=== PATIENT | female | born 1970 | race Two or more races ===

== ENCOUNTER → 2019-09-26 | Outpatient (CLI) | payer BC ==
--- NOTE | 2019-09-29 17:04 | MY ---
DATE OF SERVICE: 09/26/19 CLINICAL DATA: SCREENING AFTER CLINIC APT BILATERAL MAMMOGRAMS: Comparison is made to a prior exam dated 09/11/18. The breast tissue is heterogeneously dense bilaterally. There is stable asymmetry. No significant changes from the prior study. There is no evidence of malignancy. IMPRESSION: No evidence of malignancy. One year follow-up mammography is recommended. BI-RAD C: Mammogram - The breasts are heterogeneously dense, which may obscure small masses ACR 1 - Negative Mammogram. The exam was reviewed with R2 CAD. [id number] JONATHAN
== END ==
LOC: LB.MAM 14:57
PROVIDERS: ATTEND Family Medicine
DX: Z12.31 Encounter for screening mammogram for malignant neoplasm of breast (principal); L98.9 Disorder of the skin and subcutaneous tissue, unspecified
CPT/HCPCS: 77067; 88305

== ENCOUNTER → 2019-10-07 | Outpatient (CLI) | payer BC | LOC: LB.CLINIC 15:26 | PROVIDERS: ATTEND Nurse Practitioner Family | DX: R19.7 Diarrhea, unspecified (principal); R10.9 Unspecified abdominal pain | CPT/HCPCS: 36415; 80053; 81001; 85025 ==

== ENCOUNTER 2019-11-01 09:47 | Day surgery (SDC) | payer BC ==
[~2019-11-01 09:47] MED LIST: Metoclopramide 10 MG/2 ML SDV IV PRN; Sodium Chloride 0.9% 1,000 ML IV SCH
[2019-11-01] MEDS ORDERED: Propofol 1,000 MG/100 ML SDV ONE (11:25)
[2019-11-01] MEDS ORDERED: Midazolam 1 MG/ML 2 ML SDV ONE (11:25)
[2019-11-01 11:46] VITALS: PULSE 70
--- NOTE | 2019-11-01 11:51 | OR ---
DATE OF OPERATION: 11/01/2019 SURGEON: Handy Shields MD PREOPERATIVE DIAGNOSIS: Screening colonoscopy. POSTOPERATIVE DIAGNOSIS: Screening colonoscopy. PROCEDURE: Colonoscopy. ANESTHESIA: MAC. ESTIMATED BLOOD LOSS: None. COMPLICATIONS: None. INDICATION FOR PROCEDURE: The patient is a 49-year-old female here today for her first colonoscopy. Denies any change in bowel habits. DESCRIPTION OF PROCEDURE: Informed consent was obtained from the patient. The patient was taken to the operating room and placed on the table in left lateral decubitus position. Monitored anesthesia care was administered. Digital rectal exam performed and was normal. Colonoscope was then advanced through the anus directed toward the cecum. Cecum was reached and identified by appendiceal orifice as well as ileocecal valve. Colonoscope was then slowly withdrawn. No polyps, no masses, no areas of ischemia or inflammation identified. Colonoscope was then withdrawn. Rectum was also otherwise unremarkable. Colonoscope removed. The patient tolerated procedure well and was brought to the recovery room in good condition. FINDINGS: Normal colonoscopy. RECOMMENDATIONS: Would recommend repeat screening colonoscopy in 10 years. NICOLA /[id number]
[2019-11-01 11:54] VITALS: BP 143/72
== END 2019-11-01 13:07 | disposition home or self-care (01) ==
LOC: LB.SDS 09:47
PROVIDERS: ATTEND Surgery
DX: Z12.11 Encounter for screening for malignant neoplasm of colon (principal); Z88.5 Allergy status to narcotic agent; Z79.899 Other long term (current) drug therapy
CPT/HCPCS: G0121; J2250; J2704; J2765; J7030